=== PATIENT | male | born 1990 | race Caucasian/White ===

== ENCOUNTER 2025-02-06 08:07 | Emergency (ER) | payer OTHER ==
[~2025-02-06] VITALS: Ht 182.9 cm; Wt 93.6 kg
[2025-02-06] MEDS ORDERED: WELLTAB38 PO (08:16)
[2025-02-06] MEDS ORDERED: ZOLO100T PO (08:16)
[2025-02-06] MEDS ORDERED: LIDO1PAD TOP (10:00)
[2025-02-06] MEDS ORDERED: METH-1165 PO (10:00)
[2025-02-06] MEDS ORDERED: NAPR-837 PO (10:00)
[2025-02-06] MEDS: LIDOCAINE 5% PATCH TD ONE (10:14)
[2025-02-06] MEDS: KETOROLAC 60 MG/2 ML VIAL IM ONE (10:14)
[2025-02-06 10:24] VITALS: BP 127/79; TEMP 97.1; O2SAT 99
== END 2025-02-06 10:31 | disposition home or self-care (01) ==
LOC: M ED 08:07
DX: S39.92XA Unspecified injury of lower back, initial encounter (principal); M54.50 Low back pain, unspecified; F17.200 Nicotine dependence, unspecified, uncomplicated; M41.86 Other forms of scoliosis, lumbar region; F41.9 Anxiety disorder, unspecified; Z79.1 Long term (current) use of non-steroidal anti-inflammatories (NSAID); Z79.899 Other long term (current) drug therapy; Y92.9 Unspecified place or not applicable; Y93.B3 Activity, free weights; Y99.9 Unspecified external cause status
CPT/HCPCS: 72131; 96372; 99283; J1885